=== PATIENT | male | born 2000 | race Two or more races ===

== ENCOUNTER 2021-10-31 22:21 | Emergency (ER) | payer MEDICAID ==
[~2021-10-31] VITALS: Ht 180.3 cm; Wt 111.0 kg
[2021-10-31 22:28] VITALS: BP 147/71
[2021-10-31] MEDS ORDERED: albuterol 2.5 MG/3 ML nebule NEB ONE (22:40)
[2021-10-31] MEDS ORDERED: dexamethasone 4mg tablet PO ONE (22:40)
[2021-10-31] MEDS ORDERED: ALBU8HFA PO (23:53)
== END 2021-11-01 00:04 | disposition home or self-care (01) ==
LOC: ER 22:22
DX: Z79.899 Other long term (current) drug therapy (principal); J45.909 Unspecified asthma, uncomplicated
CPT/HCPCS: 71045; 93005; 94640; 94760; 99283